=== PATIENT | male | born 1950 | race Caucasian/White ===

== ENCOUNTER 2016-12-20 14:23 | Emergency (ER) | payer MEDICARE, BC ==
[2016-12-20 16:32] VITALS: BP 118/78
--- NOTE | 2016-12-20 16:40 | UC ---
Respiratory Complaint HPI - HPI Summary HPI Summary: 66 y/o male PMHX of CLL and BPH presents to the urgent care c/o persistent productive cough for the past 9 days. Yesterday he felt with SOB and some wheezing. He is feeling more tired than usual. He is producing a green phlegm. Pt denies fever, chest pain, N/V/D - History of Current Complaint Chief Complaint: UCRespiratory Stated Complaint: COUGH WHEEZING Time Seen by Provider: 12/20/16 16:38 Hx Obtained From: Patient Onset/Duration: Gradual Onset, Lasting Days - 9, Still Present Timing: Constant Severity Initially: Mild Severity Currently: Moderate Pain Intensity: 0 Pain Scale Used: 0-10 Numeric Character: Cough: Productive - green phlegm Alleviating Factors: OTC Meds, Upright Position Associated Signs And Symptoms: Positive: Dyspnea, Wheezing. Negative: Fever, Nasal Congestion, Sinus Discomfort - Risk Factors Pulmonary Embolism Risk Factors: Negative Cardiac Risk Factors: Negative Pseudomonas Risk Factors: Negative Tuberculosis Risk Factors: Negative - Allergies/Home Medications Allergies/Adverse Reactions: Allergies Allergy/AdvReac Type Severity Reaction Status Date / Time No Known Allergies Allergy Verified 12/20/16 16:15 Home Medications: Home Medications Acetaminophen [Tylenol 8 Hour Arthritis] 650 mg PO BID 12/20/16 [History Confirmed 12/20/16] Cetirizine* [ZyrTEC 10 MG TAB*] 12/20/16 [History] Cholecalciferol [D3] 1,000 unit PO DAILY 12/20/16 [History Confirmed 12/20/16] Clonazepam [Clonazepam Odt] 0.25 mg PO DAILY 12/20/16 [History Confirmed ] Cyanocobalamin [B-12] 1,000 mcg PO DAILY 12/20/16 [History Confirmed 12/20/16] Folic Acid TAB* [Folvite TAB*] 1 mg PO DAILY 12/20/16 [History Confirmed ] Kfxfcigsnyr-Wejlgedugds-Pab C- [Glucosamine Chondroitin] 1 tab PO BID 12/20/16 [ History Confirmed 12/20/16] Ibrutinib (NF) [Imbruvica (NF)] 420 mg PO DAILY 12/20/16 [History Confirmed 09/30] Simvastatin [Zocor 40 MG (NF)] 40 mg PO QPM 12/20/16 [History Confirmed 12/20/16 ] Tamsulosin CAP* [Flomax CAP*] 0.4 mg PO DAILY 12/20/16 [History Confirmed ] ValACYclovir (*) [Valtrex 500 mg (*)] 500 mg PO DAILY 12/20/16 [History Confirmed 12/20/16] PMH/Surg Hx/FS Hx/Imm Hx - Additional Past Medical History Additional PMH: osteoarthritis Previously Healthy: Yes Other GI/ History: BPH Other Cancer History: CLL - Surgical History Surgical History: Yes Surgery Procedure, Year, and Place: TONSILLECTOMY. VASECTOMY. LEFT SHOULDER. ROTATOR CUFF REPAIR - RIGHT SHOULDER. L5-SACRUM FUSSION. LEFT HIP REPLACEMENT. HERNIA REPAIR - Family History Known Family History: Positive: Cardiac Disease Family History: Stroke - Social History Occupation: Retired Lives: With Family Alcohol Use: Weekly Alcohol Amount: 3 TIMES A WEEK Substance Use Type: None Smoking Status (MU): Never Smoked Tobacco Review of Systems Constitutional: Negative Skin: Negative Eyes: Negative ENT: Negative Respiratory: Shortness Of Breath, Cough - productive Cardiovascular: Negative Gastrointestinal: Negative Genitourinary: Negative Motor: Negative Neurovascular: Negative Musculoskeletal: Negative Neurological: Negative Psychological: Negative All Other Systems Reviewed And Are Negative: Yes Physical Exam Triage Information Reviewed: Yes Appearance: Well-Appearing, No Pain Distress, Well-Nourished Vital Signs: Initial Vital Signs Temp 98.7 F 12/20/16 16:21 Pulse 78 12/20/16 16:21 Resp 18 12/20/16 16:21 BP 118/78 12/20/16 16:21 Pulse Ox 100 12/20/16 16:21 Vital Signs Reviewed: Yes Eye Exam: Normal Eyes: Positive: Conjunctiva Clear - PERRLA, EOMI ENT Exam: Normal ENT: Positive: Normal ENT inspection, Hearing grossly normal, Pharynx normal, Nasal congestion, Nasal drainage, TMs normal. Negative: Tonsillar swelling, Tonsillar exudate Dental Exam: Normal Neck exam: Normal Neck: Positive: Supple, Nontender, No Lymphadenopathy Respiratory Exam: Normal Respiratory: Positive: Chest non-tender, Normal breath sounds, No respiratory distress, No accessory muscle use, Wheezing - LF posterior lung with wheezing Cardiovascular Exam: Normal Cardiovascular: Positive: RRR, No Murmur, Pulses Normal, Brisk Capillary Refill Abdominal Exam: Normal Abdomen Description: Positive: Nontender, No Organomegaly, Soft. Negative: CVA Tenderness (R), CVA Tenderness (L) Bowel Sounds: Positive: Present Musculoskeletal Exam: Normal Musculoskeletal: Positive: Strength Intact, ROM Intact, No Edema Neurological Exam: Normal Psychological Exam: Normal Skin Exam: Normal UC Diagnostic Evaluation - Laboratory O2 Sat by Pulse Oximetry: 100 Respiratory Course/Dx - Course Course Of Treatment: 66 y/o male PMHX of CLL and BPH presents to the urgent care c/o persistent productive cough for the past 9 days. Yesterday he felt with SOB and some wheezing. He is feeling more tired than usual. He is producing a green phlegm. Pt denies fever, chest pain, N/V/D. Pt never smoke. Hx obtained. Pt given Duoneb Tx. Chest X-ray ordered r/o pneumonia. Impression: No acute pulmonary process, stigmata of pulmonary lung disease. Pt Rx Z-yousuf, Tessalon tabs PO, albuterol inhaler to alleviate symptoms. Advised to f/u with PCP for further management.Increase fluids, eat well and rest. Pt understood and agreed. - Differential Dx/Diagnosis Differential Diagnosis/HQI/PQRI: Asthma, Bronchitis, Exacerbation Of COPD, Influenza, Lower Resp Infection, Sinusitis Provider Diagnoses: 1- Acute bronchitis Discharge - Discharge Plan Condition: Stable Disposition: HOME Prescriptions: Albuterol HFA INHALER* [Ventolin HFA Inhaler*] 1 - 2 puff INH Q4H PRN #1 mdi PRN Reason: Cough Azithromyxin YOUSUF (NF) [Z-Yousuf (Zithromax) 250 mg tabs #6] 2 tab PO .TODAY, THEN 1 DAILY #6 tab Benzonatate CAP* [Tessalon 100 MG CAP*] 100 mg PO TID PRN #15 cap PRN Reason: Cough Patient Education Materials: Acute Bronchitis (ED) Referrals: [facility] [place] PHYSICIAN REFERRAL [Outside] - 3 Days Additional Instructions: 1-Please take full course of antibiotic to avoid resistance. 2-Take Tessalon PO tabs as directed and use the albuterol inhaler to alleviate sough. Increase fluid intake, rest and eat well. 3- If symptoms do not improve or worsen or your develop SOB with fever and severe wheezing please go immediately to the ER further evaluation and treatment. 4- F/u with your PCP in 2-3 days for further management on your Asthma
[2016-12-20] MEDS ORDERED: Albuterol/Ipratropium NEB.SOL* Albuterol 2.5 MG/Ipratropium 0.5 MG 3 ML INH ONE (16:52)
--- NOTE | 2016-12-20 17:10 | RAD ---
INDICATION: Persistent cough and shortness of breath. COMPARISON: No relevant prior exams available on the [facility] [place] PACS for comparison. TECHNIQUE: Dual energy PA and routine lateral views of the chest were obtained. REPORT: Elevated lung volumes and both diffuse mild prominence of the interstitial markings and patchy rarefaction of the mid to upper lung zone interstitial markings. No focal pulmonary lesion, compelling alveolar consolidation, pleural effusion, pneumothorax. The heart, pulmonary vasculature, and mediastinal contours are unremarkable. Post resection of the distal RIGHT clavicle and surgical anchors at both shoulders. IMPRESSION: Stigmata of obstructive lung disease. No acute pulmonary or cardiac process evident.
== END 2016-12-20 17:35 | disposition home or self-care (01) ==
LOC: UCCORT 14:23
DX: J20.9 Acute bronchitis, unspecified (principal); N40.0 Benign prostatic hyperplasia without lower urinary tract symptoms; C91.10 Chronic lymphocytic leukemia of B-cell type not having achieved remission; Z96.642 Presence of left artificial hip joint
CPT/HCPCS: 71020; 99202; A9270-GY; G0463